=== PATIENT | female | born 2000 | race African-American/Black ===

== ENCOUNTER 2019-07-13 18:20 | Observation (INO) | payer OTHER ==
[2019-07-13] MEDS ORDERED: TERBUTALINE SULFATE 1MG/ML VIAL SUBCUT PRN (19:15)
[2019-07-13] MEDS ORDERED: LACTATED RINGERS 1,000 ML IV SCH (19:15)
[2019-07-13 19:58] LABS: CLARITY URINE CLOUDY (CLEAR); COLOR URINE YELLOW (YELLOW); KETONES URINE 4+ (NEGATIVE); LEUKOCYTE ESTERASE URINE 1+ (NEGATIVE); NITRITE URINE NEGATIVE (NEGATIVE); OCCULT BLOOD URINE NEGATIVE (NEGATIVE); PH URINE 5.5 (4.5-8.0); PROTEIN URINE 1+ (NEGATIVE); SPECIFIC GRAVITY URINE 1.034 (1.005-1.030)
[2019-07-13] MEDS ORDERED: CEFAZOLIN 2,000 MG in DEXT 5% WATER 100 ML IV NR (20:45)
== END 2019-07-13 22:30 | disposition home or self-care (01) ==
LOC: 8EST 18:20 → 8 EST LDRP 18:30
PROVIDERS: ADMIT Obstetrics & Gynecology; ATTEND Obstetrics & Gynecology
DX: O26.893 Other specified pregnancy related conditions, third trimester (principal); R51 Headache; Z3A.31 31 weeks gestation of pregnancy
CPT/HCPCS: 76805; 76818; 81003; 96365; 96372; 99281; G0378; J0690; J3105; J7060; 96360; 96361